=== PATIENT | female | born 1995 | race Caucasian/White ===

== ENCOUNTER 2020-10-30 20:06 | Emergency (ER) | payer OTHER ==
[~2020-10-30] VITALS: Ht 175.3 cm; Wt 70.5 kg
[2020-10-30 20:22] VITALS: TEMP 97
[2020-10-30 22:53] LABS: BASO % 0.3 % (0.0-2.0); EOS % 0.5 % (0-4.0); GRAN % 63.8 % (42.2-75.2); HEMATOCRIT 42.3 % (37.0-47.0); LYMPH # 1.7 (1.2-3.4); LYMPH % 27.6 % (20.0-51.0); MEAN CELL VOLUME 83 fl (80.0-100.0); MEAN CORPUSCULAR HEMOGLOBIN 30 pg (27.0-31.0); MEAN CORPUSCULAR HGB CONC 36 g/dl (33.0-37.0); MEAN PLATELET VOLUME 10.2 fl (7.4-10.4); MONO # 0.5 (0.1-0.6); MONO % 7.5 % (1.7-9.3); PLATELET COUNT 261 K/mm3 (130-400); RED BLOOD COUNT 5.07 M/mm3 (4.10-5.30); REDCELL DISTRIBUTION WIDTH-CV 11.9 % (11.5-14.5)
[2020-10-30 22:56] LABS: ALBUMIN 4.7 gm/dL (3.5-5.0); BILIRUBIN,TOTAL 0.2 mg/dL (0.0-1.0); CALCIUM 9.6 mg/dL (8.4-10.2); CREATININE, serum 0.6 (0.52-1.25); POTASSIUM 3.8 mmol/L (3.4-5.0); TOTAL PROTEIN 7.8 gm/dL (6.4-8.2)
[2020-10-31] MEDS ORDERED: ZOFRAN ODT4 MG PO (00:10)
[2020-10-31] MEDS ORDERED: ANTIVERT 25MG25 MG PO (00:10)
[2020-10-31 00:16] VITALS: BP 120/77; PULSE 84
== END 2020-10-31 00:19 | disposition home or self-care (01) ==
LOC: COL.ER 20:06
PROVIDERS: Physician Assistant
DX: R42 Dizziness and giddiness (principal); R53.83 Other fatigue; R51.9 Headache, unspecified; Z86.16 Personal history of COVID-19
CPT/HCPCS: J1885; J2405; J7030